=== PATIENT | female | born 1990 | race Caucasian/White ===

== ENCOUNTER 2016-12-29 20:36 | Emergency (ER) | payer MEDICARE | END 2016-12-29 21:13 | disposition home or self-care (01) | LOC: ER1 20:36 | DX: T81.4XXA Infection following a procedure, initial encounter (principal); L02.414 Cutaneous abscess of left upper limb; X58.XXXA Exposure to other specified factors, initial encounter | CPT/HCPCS: 99282 ==

== ENCOUNTER 2016-12-30 16:08 | Emergency (ER) | payer MEDICARE | END 2016-12-30 16:56 | disposition home or self-care (01) | LOC: ER1 16:08 | DX: Z48.01 Encounter for change or removal of surgical wound dressing (principal); L02.414 Cutaneous abscess of left upper limb; F17.210 Nicotine dependence, cigarettes, uncomplicated | CPT/HCPCS: 99282 ==